=== PATIENT | female | born 1930 | race Two or more races ===

== ENCOUNTER 2016-03-11 01:33 | Inpatient (IN) | payer MEDICARE, MEDICAID ==
[2016-03-11] VITALS (45 sets, daily range): BP systolic 64–128; BP diastolic 19–74
[~2016-03-11] VITALS: Ht 152.4 cm; Wt 59.0 kg
[2016-03-11] MEDS ORDERED: MULTI-DELYN237 ML GT (02:11)
[2016-03-11] MEDS ORDERED: TYLENOL650 MG/20. GT (02:11)
[2016-03-11] MEDS ORDERED: BENADRYL25 MG GT (02:11)
[2016-03-11] MEDS ORDERED: BENAZEPRIL HCL10 MG GT (02:11)
[2016-03-11] MEDS ORDERED: LEVEMIR100 UNIT/1 SUBQ (02:11)
[2016-03-11] MEDS ORDERED: B COMPLEX-FOLI1 EACH GT (02:11)
[2016-03-11] MEDS ORDERED: CALAN SR120 MG GT (02:11)
[2016-03-11] MEDS ORDERED: DONEPEZIL HCL10 M2 GT (02:11)
[2016-03-11] MEDS ORDERED: TRAZODONE HCL100 MG GT (02:11)
[2016-03-11] MEDS ORDERED: ZYPREXA5 MG GT (02:11)
[2016-03-11] MEDS ORDERED: OMEPRAZOLE20 M2 GT (02:11)
[2016-03-11] MEDS ORDERED: ASPIRIN325 MG GT (02:11)
[2016-03-11] MEDS ORDERED: MIRTAZAPINE7.5 MG GT (02:11)
[2016-03-11] MEDS ORDERED: MULTIVITAMINS1 EAC8 ORAL (02:11)
[2016-03-11] MEDS ORDERED: Vancomycin 1 GM in NS 275 ML IVPB ONE (02:15)
[2016-03-11] MEDS ORDERED: Piperacillin/Tazobactam 4.5 GM in NS 110 ML IVPB ONE (02:15)
[2016-03-11] MEDS ORDERED: Vancomycin 1gm inj IVPB ONE (02:16)
[2016-03-11] MEDS ORDERED: Tubing IV Cassette IV ONE (02:16)
[2016-03-11] MEDS ORDERED: NS 275 ML ONE (02:16)
[2016-03-11 02:18] LABS: BASOPHILS % (AUTO) 0.3 % (0.0-2.0); MEAN CORPUSCULAR HEMOGLOBIN 29.9 PG (27.0-31.0); MEAN CORPUSCULAR HGB CONC 27.3 G/DL (32.0-36.0); MEAN CORPUSCULAR VOLUME 109 FL (80-99); MEAN PLATELET VOLUME 6.9 FL (6.5-10.1); MONOCYTES % (AUTO) 2.8 % (1.0-10.0); NEUTROPHILS % (AUTO) 84.9 % (45.0-75.0); PLATELET COUNT 429 K/UL (150-450); RED BLOOD COUNT 3.29 M/UL (4.20-5.40); RED CELL DISTRIBUTION WIDTH 14.7 % (11.6-14.8); WHITE BLOOD COUNT 15.7 K/UL (4.8-10.8)
[2016-03-11 02:30] LABS: TROPONIN I < 0.30 ng/mL (<=0.30)
[2016-03-11 02:33] LABS: ALANINE AMINOTRANSFERASE 22 U/L (3-33); ALBUMIN/GLOBULIN RATIO 0.8 (1.0-2.7); ASPARTATE AMINO TRANSFERASE 22 U/L (5-40); CALCIUM 9.9 mg/dL (8.6-10.2); CARBON DIOXIDE 17 mEQ/L (20-30); CREATININE 2.4 mg/dL (0.5-0.9); HEMOLYSIS 11; SODIUM 154 mEQ/L (135-145); TOTAL PROTEIN 6.6 g/dL (6.6-8.7)
[2016-03-11 02:42] LABS: REFLEX LACTIC ACID YES OR NO YES
[2016-03-11 02:44] LABS: CKMB 4.8 ng/mL (< 3.8)
[2016-03-11 02:49] LABS: ANION GAP 26 (5-15)
[2016-03-11 02:52] LABS: CHLORIDE 111 mEQ/L (98-107); POTASSIUM 6.1 mEQ/L (3.4-4.9)
[2016-03-11] MEDS ORDERED: Zosyn 4.5gm inj ONE (03:02)
[2016-03-11] MEDS ORDERED: NS 110 ML ONE (03:02)
[2016-03-11 03:49] LABS: PROTHROMBIN TIME 10.3 SEC (9.30-11.50)
[2016-03-11 03:52] LABS: PARTIAL THROMBOPLASTIN TIME > 150 SEC (23-33)
[2016-03-11 04:36] LABS: ABG PCO2 36.2 mmHg (35.0-45.0)
[2016-03-11 04:37] LABS: ABG ALLEN TEST POSITIVE; ABG BASE EXCESS -16.3
--- NOTE | 2016-03-11 05:34 | Emergency Room Report ---
History of Present Illness General Chief Complaint: Dyspnea/Respdistress Source: Medical Record, EMS Present Illness HPI This is an 85-year-old female who is bed bound. She also has a feeding tube. She at baseline is nonverbal but awake. She was sent in for respiratory distress. Onset tonight. No nausea no vomiting. No fever. Per EMS she is nonresponsive and hypoxic. They put on oxygen and sent her here. Unable to get any other history from patient. Also blood sugar was very high on the monitor. Allergies: Coded Allergies: No Known Allergies (Unverified , 03/11/16) Patient History Past Medical History: see triage record, old chart reviewed, pneumonia, psych hx Past Surgical History: other Pertinent Family History: none Social History: Denies: smoking Now: No Immunizations: other Reviewed Nursing Documentation: PMH: Agreed, PSxH: Agreed Nursing Documentation-PMH Hx Hypertension: Yes Hx Diabetes: Yes Review of Systems Constitutional: Reports: weakness Eye: Denies: blurred vision, eye pain ENT: Denies: ear pain, nose congestion, throat swelling Respiratory: Reports: shortness of breath, Denies: cough Cardiovascular: Denies: chest pain, palpitations Gastrointestinal: Denies: abdominal pain, diarrhea, nausea, vomiting Musculoskeletal: Denies: back pain, joint pain Skin: Denies: rash Neurological: Denies: headache, numbness Endocrine: Denies: increased thirst, increased urine Hematologic/Lymphatic: Denies: easy bruising All Other Systems: limited - Secondary to her condition. Physical Exam Vital Signs Date Time Temp Pulse Resp B/P Pulse Ox O2 Delivery O2 Flow Rate FiO2 03/11/16 01:31 101.3 135 35 137/115 85 Non-Rebreather 15.0 03/11/16 01:35 100 vitals with fever, tachycardia, hypoxia Sp02 EP Interpretation: abnormal General Appearance: severe distress, lethargic, Chronically Ill Head: normocephalic, atraumatic Eyes: bilateral eye EOMI, bilateral eye PERRL ENT: dry mucus membranes Neck: full range of motion, supple, no meningismus Respiratory: chest non-tender, decreased breath sounds, accessory muscle use, crackles Cardiovascular #1: regular rate, rhythm, no murmur, tachycardia Gastrointestinal: normal bowel sounds, non tender, no mass, no organomegaly, no bruit, non-distended Musculoskeletal: back normal, normal range of motion, other Neurologic: other - No focal deficit Psychiatric: mood/affect normal Skin: warm/dry Procedures Critical Care Time Critical Care Time Critical care is mandated in this patient who presented with severe sepsis. Patient require my urgent intervention to attenuate the risks of a bar collapse which may lead to cardiovascular collapse and . Critical care time is 75 minutes excluding any reportable procedure. Critical care time included evaluation, multiple reevaluation, looking at old charts, interpreting laboratory and diagnostic data, discussing case with patient and family and consultants, and charting. Central Line Central Line : Consent: Emergent Central Line Lumen: triple Maximal Sterile Barrier Tech: yes cap, yes mask, yes sterile gown, yes sterile gloves, yes large sterile sheet, yes hand hygiene, yes chlorhexidine prep Central Line Postion: femoral (R) Complications: none Central Line Post Position: sutured, good blood return Attempts: One Patient Tolerated: Well Complications: None Medical Decision Making Diagnostic Impression: Primary Impression: Severe sepsis with acute organ dysfunction Additional Impressions: Pneumonia Qualified Codes: J18.9 - Pneumonia, unspecified organism Respiratory failure with hypoxia Qualified Codes: J96.21 - Acute and chronic respiratory failure with hypoxia Acute renal failure (ARF) Qualified Codes: N17.9 - Acute kidney failure, unspecified Dehydration Hyperglycemia due to type 2 diabetes mellitus Qualified Codes: E11.65 - Type 2 diabetes mellitus with hyperglycemia; Z79.4 - ocean transportation intermediary (current) use of insulin DKA (diabetic ketoacidoses) Qualified Codes: E13.10 - Other specified diabetes mellitus with ketoacidosis without coma ER Course Patient presents with severe sepsis/septic shock. Condition is critical. She is protecting her airway. Broad spectrum antibiotics given. We'll admit to ICU. Lab Results Impression labs showed severe hyperglycemia and possible DKA EKG Diagnostic Results Rate: normal Rhythm: NSR ST Segments: no acute changes Rhythm Strip Diag. Results EP Interpretation: yes Rate: 105 Rhythm: NSR, no PVC's, no ectopy Chest X-Ray Diagnostic Results EP Interpretation: Yes Findings: no effusion, no pneumothorax, other - multi lobar infiltrates, mostly LLL Number of Views: 1 Last Vital Signs Date Time Temp Pulse Resp B/P Pulse Ox O2 Delivery O2 Flow Rate FiO2 03/11/16 04:36 97.4 112 15 92/45 97 Mechanical Ventilator 100 03/11/16 01:48 15.0 Status: improved Disposition: ADMITTED INPATIENT Condition: Critical Referrals: JENNY HARDWICK (PCP) KEVIN WAN M.D. Mar 11, 2016 05:34
[2016-03-11 05:58] LABS: ANION GAP 25 (5-15); CALCIUM 8.3 mg/dL (8.6-10.2); CARBON DIOXIDE 14 mEQ/L (20-30); CHLORIDE 119 mEQ/L (98-107); CREATININE 2.3 mg/dL (0.5-0.9); HEMOLYSIS 3; POTASSIUM 4.8 mEQ/L (3.4-4.9); SODIUM 158 mEQ/L (135-145)
[2016-03-11] MEDS ORDERED: Morphine Sulfate 4mg/ml Inj IVP PRN (06:45)
[2016-03-11] MEDS ORDERED: Miralax 17gm pkt ORAL PRN (06:45)
[2016-03-11] MEDS ORDERED: Amikacin Rx to dose MISC PRN (06:45)
[2016-03-11] MEDS ORDERED: LORazepam Inj 2mg/ml 1ml IV PRN (06:45)
[2016-03-11] MEDS ORDERED: DuoNeb 0.5-3(2.5)mg/3ml neb HHN PRN (06:45)
[2016-03-11] MEDS ORDERED: Nitroglycerin Subl 0.4mg tab (Bottle Of 25) SL PRN (06:45)
[2016-03-11] MEDS: Heparin 5000 units/ml inj SUBQ SCH ×2 (09:00→20:34)
[2016-03-11] MEDS ORDERED: Amikacin 350 MG in NS 110 ML IV ONE ×2 (09:00→14:30)
--- NOTE | 2016-03-11 11:19 | Pulmonolgy Critical Care Note ---
Critical Care - Asmt/Plan Problems: (1) Respiratory failure with hypoxia (2) Hyperosmolar coma (3) DKA (diabetic ketoacidoses) (4) Acute renal failure (ARF) (5) Dehydration (6) Advanced dementia Respiratory: adjust tidal volume, adjust FIO2, CXR Cardiac: continue to monitor HR/BP Renal: F/U I&O, keep IV fluid, check electrolytes Infectious Disease: check cultures, continue antibiotics Gastrointestinal: continue feedings/current rate Endocrine: monitor blood sugar, check TSH, check HgA1C, continue sliding scale insulin Hematologic: transfuse if hgb<8.5 Neurologic: PRN Ativan, PRN Morphine, keep patient comfortable Affect: PRN ativan Prophylaxis: Protonix Disposition: keep in ICU Notes Reviewed: auto mechanic supervisor, cardio, renal Discussed with: nurses, consultants, immigration case workerinternet project manager - Objective Last 24 Hour Vital Signs Date Time Temp Pulse Resp B/P Pulse Ox O2 Delivery O2 Flow Rate FiO2 03/11/16 10:10 80 03/11/16 10:00 100 03/11/16 08:40 89 20 98 Full Face 100 03/11/16 08:30 95 31 99/57 98 Mechanical Ventilator 100 03/11/16 08:20 97.4 95 31 106/74 100 15.0 100 03/11/16 07:42 96 31 100 Full Face 100 03/11/16 07:30 95 32 106/74 100 Mechanical Ventilator 100 03/11/16 06:30 99 27 128/64 100 Mechanical Ventilator 100 03/11/16 05:40 109 27 122/67 100 Mechanical Ventilator 100 03/11/16 05:25 108 33 100 Full Face 100 03/11/16 04:36 97.4 112 15 92/45 97 Mechanical Ventilator 100 03/11/16 03:32 99.4 108 15 90/54 97 Mechanical Ventilator 100 03/11/16 02:51 116 28 Full Face 100 03/11/16 02:30 99.7 115 14 99/59 97 Mechanical Ventilator 100 03/11/16 01:48 135 35 Non-Rebreather 15.0 03/11/16 01:35 100 03/11/16 01:31 101.3 135 35 137/115 85 Non-Rebreather 15.0 Status: somnolent Condition: critical HEENT: atraumatic Neck: full ROM Lungs: clear, chest wall tender Heart: HR/BP stable Abdomen: soft, non-tender, feeding tube Extremities: no C/C/E, edema Decubiti: location Critical Care - Subjective ROS Limited/Unobtainable: Yes ICU Day: 1 Intubation Day: on bipap Interval Events: 85-year-old female who is bed bound with feeding tube, nonverbal but awake, [facility] resident She was sent in for respiratory distress. EMS reported that she is nonresponsive and hypoxic. They put on oxygen and sent her here. Pt was diagnosed to have hyper osmolar coma/ DKA, pneumonia and admitted to ICU. FI02: 100 Vent Support Breath Rate: 14 Vent Support Mode: BiLevel Sputum Amount: None Fluids: NS bolus and 1/2 NS 150 cchour I&O: Intake and Output 03/10/16 03/11/16 19:00 07:00 Intake Total 2335 ml Balance 2335 ml Intake IV Total 2335 ml CXR: extensive Left infiltrate Labs: Laboratory Tests Test 03/11/16 01:55 03/11/16 03:25 03/11/16 04:25 03/11/16 05:25 White Blood Count 15.7 K/UL (4.8-10.8) H Red Blood Count 3.29 M/UL (4.20-5.40) L Hemoglobin 9.8 G/DL (12.0-16.0) L Hematocrit 35.9 % (37.0-47.0) L Mean Corpuscular Volume 109 FL (80-99) H Mean Corpuscular Hemoglobin 29.9 PG (27.0-31.0) Mean Corpuscular Hemoglobin Concent 27.3 G/DL (32.0-36.0) L Red Cell Distribution Width 14.7 % (11.6-14.8) Platelet Count 429 K/UL (150-450) Mean Platelet Volume 6.9 FL (6.5-10.1) Neutrophils (%) (Auto) 84.9 % (45.0-75.0) H Lymphocytes (%) (Auto) 12.0 % (20.0-45.0) L Monocytes (%) (Auto) 2.8 % (1.0-10.0) Eosinophils (%) (Auto) 0.0 % (0.0-3.0) Basophils (%) (Auto) 0.3 % (0.0-2.0) Prothrombin Time 10.3 SEC (9.30-11.50) Prothromb Time International Ratio 1.0 (0.9-1.1) Activated Partial Thromboplast Time > 150 SEC (23-33) *H Sodium Level 154 mEQ/L (135-145) H 158 mEQ/L (135-145) H Potassium Level 6.1 mEQ/L (3.4-4.9) *H 4.8 mEQ/L (3.4-4.9) Chloride Level 111 mEQ/L (98-107) H 119 mEQ/L (98-107) H Carbon Dioxide Level 17 mEQ/L (20-30) L 14 mEQ/L (20-30) L Anion Gap 26 (5-15) H 25 (5-15) H Blood Urea Nitrogen 137 mg/dL (7-23) H 116 mg/dL (7-23) H Creatinine 2.4 mg/dL (0.5-0.9) H 2.3 mg/dL (0.5-0.9) H Estimat Glomerular Filtration Rate mL/min (>60) mL/min (>60) Glucose Level 1072 mg/dL (74-106) *H 869 mg/dL (74-106) #*H Lactic Acid Level 9.90 mmol/L (0.66-2.22) H 11.80 mmol/L (0.66-2.22) H Calcium Level 9.9 mg/dL (8.6-10.2) 8.3 mg/dL (8.6-10.2) L Total Bilirubin 0.7 mg/dL (0.0-1.2) Aspartate Amino Transf (AST/SGOT) 22 U/L (5-40) Alanine Aminotransferase (ALT/SGPT) 22 U/L (3-33) Alkaline Phosphatase 100 U/L (35-104) Total Creatine Kinase 792 U/L (26-140) H Creatine Kinase MB 4.8 ng/mL (< 3.8) H Creatine Kinase MB Relative Index 0.6 Troponin I < 0.30 ng/mL (<=0.30) Total Protein 6.6 g/dL (6.6-8.7) Albumin 3.1 g/dL (3.5-5.2) L Globulin 3.5 g/dL Albumin/Globulin Ratio 0.8 (1.0-2.7) L Arterial Blood pH 7.130 (7.350-7.450) Arterial Blood Partial Pressure CO2 36.2 mmHg (35.0-45.0) Arterial Blood Partial Pressure O2 202.0 mmHg (75.0-100.0) H Arterial Blood HCO3 11.8 mmol/L (22.0-26.0) L Arterial Blood Oxygen Saturation 98.4 % (92.0-98.0) H Arterial Blood Base Excess -16.3 Leon Test Positive Test 03/11/16 10:05 Glucose Level 716 mg/dL (74-106) #*H GILSON NÚÑEZ Mar 11, 2016 11:19
[2016-03-11 12:47] LABS: INR 1.2 (0.9-1.1); PROTHROMBIN TIME 12.1 SEC (9.30-11.50)
[2016-03-11] MEDS: DOPamine 400mg/250ml 250 ML IV SCH ×9 (13:22→20:31)
[2016-03-11 13:37] LABS: CRP QUANT 6.9 mg/dL (< 0.5)
--- NOTE | 2016-03-11 13:39 | Diagnostic Imaging Report ---
Indication: SOB Technique: One view of the chest Comparison: none Findings: Reticular and nodular opacities are seen in the left perihilar region, along with some larger opacities of varying shapes and sizes. A band of atelectasis and/or scarring is seen in the right perihilar region. The heart size is normal. Pleural spaces are clear Impression: Nonspecific left lung parenchymal opacities, could reflect acute infiltrates, edema, neoplastic or postinflammatory changes. Correlate with clinical findings, recommend followup radiographs as clinically indicated Right perihilar atelectasis
[2016-03-11] MEDS ORDERED: Piperacillin/Tazobactam 3.375 GM in NS 110 ML IVPB SCH (14:00)
[2016-03-11 14:07] LABS: RETICULOCYTE COUNT 1.7 % (0.0-2.0)
[2016-03-11 14:10] LABS: BAND NEUTROPHILS % (MANUAL) 3 % (0-8); LYMPHOCYTES % (MANUAL) 11 % (20-45); NEUTROPHILS % (MANUAL) 85 % (45-75); TOTAL CELLS COUNTED 100
[2016-03-11 14:11] LABS: BASOPHILS % (MANUAL) 0 % (0-2); EOSINOPHILS % (MANUAL) 0 % (0-3); PLATELET ESTIMATE INCREASED; PLATELET MORPHOLOGY NORMAL
[2016-03-11 14:13] LABS: MACROCYTES 1+
[2016-03-11 14:18] LABS: PATH BLOOD SMEAR/OMC SENT TO PATHOLOGIST
[2016-03-11 14:22] LABS: ERYTHROCYTE SEDIMENTATION RATE 56 MM/HR (0-42)
--- NOTE | 2016-03-11 15:04 | Consultation ---
Consult Note Consult Note Asked to eval for Renal failure Chief Complaint: Dyspnea/Respdistress This is an 85-year-old female who is bed bound. She also has a feeding tube. She at baseline is nonverbal but awake. She was sent in for respiratory distress. Onset tonight. No nausea no vomiting. No fever. Per EMS she is nonresponsive and hypoxic. They put on oxygen and sent her here. Unable to get any other history from patient. Also blood sugar was very high on the monitor. . Assessment/Plan Renal: - Acute renal failure (ARF) secondary to Septic shock - Dehydration and free water deficit leading to hypernatremia Others: 1) Respiratory failure with hypoxia / Pneumonia / sepsis (2) Hyperosmolar coma (3) DKA (diabetic ketoacidoses) (4) Advanced dementia (5) Anemia Plan: Hydrate- Antibiotics- BS control- Avoid Nephrotoxics- Poor prognosis LITTLE MACIAS Mar 11, 2016 15:04
[2016-03-11] MEDS: Insulin Rate Change 1 Each MISC PRN ×8 (15:06→23:06)
[2016-03-11 15:07] LABS: REFLEX LACTIC ACID YES OR NO YES
--- NOTE | 2016-03-11 15:57 | Infectious Diseases Prog Note ---
Assessment/Plan Problems: (1) HCAP (healthcare-associated pneumonia) Assessment & Plan: will start zyvox, continue zosyn, will D/C amikacin, and vancomycin to avoid nephrotoxicity, will send influenza screening (2) Severe sepsis with acute organ dysfunction Assessment & Plan: will send blood culture, and start zyvox, and continue zosyn , will stop amikacin and vancomycin since she had renal failure and these antibiotics will worsen her kidney function. (3) DKA (diabetic ketoacidoses) Assessment & Plan: continue insulin drip and monitor glucose level closely, coremaker supervisor is following (4) Respiratory failure with hypoxia Assessment & Plan: due to pneumonia , on high flow oxygen, monitor ABG, enterprise systems manager is following (5) Dehydration Assessment & Plan: continue IVF for hydration (6) Acute renal failure (ARF) Assessment & Plan: due to sepsis, avoid nephrotoxic meds, continue IVF for hydration, consult compliance clerk Subjective Allergies: Coded Allergies: No Known Allergies (Unverified , 03/11/16) Objective Vital Signs Last 24 Hour Vital Signs Date Time Temp Pulse Resp B/P Pulse Ox O2 Delivery O2 Flow Rate FiO2 03/11/16 15:27 85/40 03/11/16 15:08 90 20 100 Full Face 100 03/11/16 14:39 82/44 03/11/16 14:09 82/44 03/11/16 13:22 81/48 03/11/16 13:15 72 20 99 Full Face 100 03/11/16 10:55 92 20 99 Full Face 100 03/11/16 10:10 80 03/11/16 10:00 89 21 93/45 03/11/16 10:00 100 03/11/16 08:40 89 20 98 Full Face 100 03/11/16 08:30 95 31 99/57 98 Mechanical Ventilator 100 03/11/16 08:20 97.4 95 31 106/74 100 15.0 100 03/11/16 07:42 96 31 100 Full Face 100 03/11/16 07:30 95 32 106/74 100 Mechanical Ventilator 100 03/11/16 06:30 99 27 128/64 100 Mechanical Ventilator 100 03/11/16 05:40 109 27 122/67 100 Mechanical Ventilator 100 03/11/16 05:25 108 33 100 Full Face 100 03/11/16 04:36 97.4 112 15 92/45 97 Mechanical Ventilator 100 03/11/16 03:32 99.4 108 15 90/54 97 Mechanical Ventilator 100 03/11/16 02:51 116 28 Full Face 100 03/11/16 02:30 99.7 115 14 99/59 97 Mechanical Ventilator 100 03/11/16 01:48 135 35 Non-Rebreather 15.0 03/11/16 01:35 100 03/11/16 01:31 101.3 135 35 137/115 85 Non-Rebreather 15.0 Height (Feet): 5 Height (Inches): 0.00 Weight (Pounds): 130 Laboratory Tests Test 03/11/16 01:55 03/11/16 03:25 03/11/16 04:25 03/11/16 05:25 White Blood Count 15.7 K/UL (4.8-10.8) H Red Blood Count 3.29 M/UL (4.20-5.40) L Hemoglobin 9.8 G/DL (12.0-16.0) L Hematocrit 35.9 % (37.0-47.0) L Mean Corpuscular Volume 109 FL (80-99) H Mean Corpuscular Hemoglobin 29.9 PG (27.0-31.0) Mean Corpuscular Hemoglobin Concent 27.3 G/DL (32.0-36.0) L Red Cell Distribution Width 14.7 % (11.6-14.8) Platelet Count 429 K/UL (150-450) Mean Platelet Volume 6.9 FL (6.5-10.1) Neutrophils (%) (Auto) 84.9 % (45.0-75.0) H Lymphocytes (%) (Auto) 12.0 % (20.0-45.0) L Monocytes (%) (Auto) 2.8 % (1.0-10.0) Eosinophils (%) (Auto) 0.0 % (0.0-3.0) Basophils (%) (Auto) 0.3 % (0.0-2.0) Differential Total Cells Counted 100 Neutrophils % (Manual) 85 % (45-75) H Lymphocytes % (Manual) 11 % (20-45) L Monocytes % (Manual) 1 % (1-10) Eosinophils % (Manual) 0 % (0-3) Basophils % (Manual) 0 % (0-2) Band Neutrophils 3 % (0-8) Platelet Estimate Increased H Platelet Morphology Normal Macrocytosis 1+ Prothrombin Time 10.3 SEC (9.30-11.50) Prothromb Time International Ratio 1.0 (0.9-1.1) Activated Partial Thromboplast Time > 150 SEC (23-33) *H Sodium Level 154 mEQ/L (135-145) H 158 mEQ/L (135-145) H Potassium Level 6.1 mEQ/L (3.4-4.9) *H 4.8 mEQ/L (3.4-4.9) Chloride Level 111 mEQ/L (98-107) H 119 mEQ/L (98-107) H Carbon Dioxide Level 17 mEQ/L (20-30) L 14 mEQ/L (20-30) L Anion Gap 26 (5-15) H 25 (5-15) H Blood Urea Nitrogen 137 mg/dL (7-23) H 116 mg/dL (7-23) H Creatinine 2.4 mg/dL (0.5-0.9) H 2.3 mg/dL (0.5-0.9) H Estimat Glomerular Filtration Rate mL/min (>60) mL/min (>60) Glucose Level 1072 mg/dL (74-106) *H 869 mg/dL (74-106) #*H Lactic Acid Level 9.90 mmol/L (0.66-2.22) H 11.80 mmol/L (0.66-2.22) H Calcium Level 9.9 mg/dL (8.6-10.2) 8.3 mg/dL (8.6-10.2) L Total Bilirubin 0.7 mg/dL (0.0-1.2) Aspartate Amino Transf (AST/SGOT) 22 U/L (5-40) Alanine Aminotransferase (ALT/SGPT) 22 U/L (3-33) Alkaline Phosphatase 100 U/L (35-104) Total Creatine Kinase 792 U/L (26-140) H Creatine Kinase MB 4.8 ng/mL (< 3.8) H Creatine Kinase MB Relative Index 0.6 Troponin I < 0.30 ng/mL (<=0.30) Total Protein 6.6 g/dL (6.6-8.7) Albumin 3.1 g/dL (3.5-5.2) L Globulin 3.5 g/dL Albumin/Globulin Ratio 0.8 (1.0-2.7) L Arterial Blood pH 7.130 (7.350-7.450) Arterial Blood Partial Pressure CO2 36.2 mmHg (35.0-45.0) Arterial Blood Partial Pressure O2 202.0 mmHg (75.0-100.0) H Arterial Blood HCO3 11.8 mmol/L (22.0-26.0) L Arterial Blood Oxygen Saturation 98.4 % (92.0-98.0) H Arterial Blood Base Excess -16.3 Leon Test Positive Test 03/11/16 10:05 03/11/16 12:15 03/11/16 13:30 Glucose Level 716 mg/dL (74-106) #*H Erythrocyte Sedimentation Rate 56 MM/HR (0-42) H Reticulocyte Count 1.7 % (0.0-2.0) Prothrombin Time 12.1 SEC (9.30-11.50) H Prothromb Time International Ratio 1.2 (0.9-1.1) H Activated Partial Thromboplast Time 28 SEC (23-33) Iron Level 13 ug/dL (37-145) L Total Iron Binding Capacity 139 ug/dL (250-400) L Percent Iron Saturation 9 % (15-50) L Unsaturated Iron Binding 126 ug/dL (112-346) Ferritin 1344 ng/mL (13-150) H Lactate Dehydrogenase 455 U/L (135-230) H C-Reactive Protein, Quantitative 6.9 mg/dL (< 0.5) H Carcinoembryonic Antigen 42.7 ng/mL H Vitamin B12 Level 742 pg/mL (211-946) Folate Pending Lactic Acid Level 5.40 mmol/L (0.66-2.22) H Current Medications Medications (Trade) Dose Ordered Sig/Tiffany Route PRN Reason Start Time Stop Time Status Last Admin Dose Admin Acetaminophen (Tylenol) 650 mg Q4H PRN ORAL T>100.5 03/11/16 06:45 04/10/16 06:44 Albuterol/ Ipratropium (DuoNeb 0.5-3(2.5)mg/3ml) 3 ml Q4H PRN HHN Shortness of Breath 03/11/16 06:45 03/16/16 06:44 Dextrose (Dextrose 50%) PRN PRN IV HYPOGLYCEMIA 03/11/16 06:45 04/10/16 06:44 Dextrose (Dextrose 50%) STAT PRN IV Hypoglycemia 03/11/16 06:45 04/10/16 06:44 Dopamine HCl/ Dextrose (DOPamine 400mg/ 250ml) 250 ml @ 0 mls/hr Q24H IV 03/11/16 13:00 04/10/16 12:59 03/11/16 15:27 Heparin Sodium (Porcine) (Heparin 5000 units/ml) 5,000 units EVERY 12 HOURS SUBQ 03/11/16 09:00 04/10/16 08:59 03/11/16 09:00 Insulin Human Regular (NovoLIN R) 10 units PRN PRN IV BS=>300 03/11/16 09:00 04/10/16 08:59 Insulin Human Regular 5 units 5 units PRN PRN IV BS 200-299 03/11/16 09:00 04/10/16 08:59 Insulin Human Regular/Sodium Chloride (NovoLIN R/ Sodium Chloride) 101 ml @ 0 mls/hr Q24H IV 03/11/16 08:00 04/10/16 07:59 03/11/16 08:00 Lorazepam (Ativan 2mg/ml 1ml) 2 mg Q2H PRN IV agitation 03/11/16 06:45 03/18/16 06:44 Miscellaneous Medication (Insulin Rate Change) 1 ea PRN PRN MISC according to protocol 03/11/16 09:00 04/10/16 08:59 03/11/16 15:06 Morphine Sulfate (Morphine Sulfate) 4 mg Q4H PRN IVP Severe Pain (Pain Scale 7-10) 03/11/16 06:45 03/18/16 06:44 Nitroglycerin (Ntg) 0.4 mg Q5M PRN SL Prn Chest Pain 03/11/16 06:45 04/10/16 06:44 Ondansetron HCl (Zofran) 4 mg Q6H PRN IVP Nausea & Vomiting 03/11/16 06:45 04/10/16 06:44 Piperacillin Sod/ Tazobactam Sod 3.375 gm/Sodium Chloride 110 ml @ 27.5 mls/hr Q12HR@0200,1400 IVPB 03/11/16 14:00 03/18/16 13:59 Polyethylene Glycol (Miralax) 17 gm DAILYPRN PRN ORAL Constipation 03/11/16 06:45 04/10/16 06:44 Sodium Chloride 1,000 ml @ 150 mls/hr Q6H40M IV 03/11/16 11:30 04/10/16 11:29 03/11/16 11:30 Sodium Chloride (Sodium Chloride 1000ml bag) 1,000 ml @ 150 mls/hr Q6H40M IV 03/11/16 07:30 04/10/16 07:29 03/11/16 14:11 Trazodone HCl 100 mg 100 mg BEDTIME GT 03/11/16 21:00 04/10/16 20:59 Andrade Morales M.D. Mar 11, 2016 15:57
--- NOTE | 2016-03-11 17:14 | Cardiac Electrophysiology PN ---
Subjective Subjective [id number] Objective Last 24 Hour Vital Signs Date Time Temp Pulse Resp B/P Pulse Ox O2 Delivery O2 Flow Rate FiO2 03/11/16 16:48 86/45 03/11/16 16:32 83/45 03/11/16 15:54 82/44 03/11/16 15:27 85/40 03/11/16 15:08 90 20 100 Full Face 100 03/11/16 14:39 82/44 03/11/16 14:09 82/44 03/11/16 13:22 81/48 03/11/16 13:15 72 20 99 Full Face 100 03/11/16 10:55 92 20 99 Full Face 100 03/11/16 10:10 80 03/11/16 10:00 89 21 93/45 03/11/16 10:00 100 03/11/16 08:40 89 20 98 Full Face 100 03/11/16 08:30 95 31 99/57 98 Mechanical Ventilator 100 03/11/16 08:20 97.4 95 31 106/74 100 15.0 100 03/11/16 07:42 96 31 100 Full Face 100 03/11/16 07:30 95 32 106/74 100 Mechanical Ventilator 100 03/11/16 06:30 99 27 128/64 100 Mechanical Ventilator 100 03/11/16 05:40 109 27 122/67 100 Mechanical Ventilator 100 03/11/16 05:25 108 33 100 Full Face 100 03/11/16 04:36 97.4 112 15 92/45 97 Mechanical Ventilator 100 03/11/16 03:32 99.4 108 15 90/54 97 Mechanical Ventilator 100 03/11/16 02:51 116 28 Full Face 100 03/11/16 02:30 99.7 115 14 99/59 97 Mechanical Ventilator 100 03/11/16 01:48 135 35 Non-Rebreather 15.0 03/11/16 01:35 100 03/11/16 01:31 101.3 135 35 137/115 87 Non-Rebreather 15.0 Intake and Output 03/10/16 03/11/16 19:00 07:00 Intake Total 2335 ml Balance 2335 ml Intake IV Total 2335 ml Laboratory Tests Test 03/11/16 01:55 03/11/16 03:25 03/11/16 04:25 03/11/16 05:25 White Blood Count 15.7 K/UL (4.8-10.8) H Red Blood Count 3.29 M/UL (4.20-5.40) L Hemoglobin 9.8 G/DL (12.0-16.0) L Hematocrit 35.9 % (37.0-47.0) L Mean Corpuscular Volume 109 FL (80-99) H Mean Corpuscular Hemoglobin 29.9 PG (27.0-31.0) Mean Corpuscular Hemoglobin Concent 27.3 G/DL (32.0-36.0) L Red Cell Distribution Width 14.7 % (11.6-14.8) Platelet Count 429 K/UL (150-450) Mean Platelet Volume 6.9 FL (6.5-10.1) Neutrophils (%) (Auto) 84.9 % (45.0-75.0) H Lymphocytes (%) (Auto) 12.0 % (20.0-45.0) L Monocytes (%) (Auto) 2.8 % (1.0-10.0) Eosinophils (%) (Auto) 0.0 % (0.0-3.0) Basophils (%) (Auto) 0.3 % (0.0-2.0) Differential Total Cells Counted 100 Neutrophils % (Manual) 85 % (45-75) H Lymphocytes % (Manual) 11 % (20-45) L Monocytes % (Manual) 1 % (1-10) Eosinophils % (Manual) 0 % (0-3) Basophils % (Manual) 0 % (0-2) Band Neutrophils 3 % (0-8) Platelet Estimate Increased H Platelet Morphology Normal Macrocytosis 1+ Prothrombin Time 10.3 SEC (9.30-11.50) Prothromb Time International Ratio 1.0 (0.9-1.1) Activated Partial Thromboplast Time > 150 SEC (23-33) *H Sodium Level 154 mEQ/L (135-145) H 158 mEQ/L (135-145) H Potassium Level 6.1 mEQ/L (3.4-4.9) *H 4.8 mEQ/L (3.4-4.9) Chloride Level 111 mEQ/L (98-107) H 119 mEQ/L (98-107) H Carbon Dioxide Level 17 mEQ/L (20-30) L 14 mEQ/L (20-30) L Anion Gap 26 (5-15) H 25 (5-15) H Blood Urea Nitrogen 137 mg/dL (7-23) H 116 mg/dL (7-23) H Creatinine 2.4 mg/dL (0.5-0.9) H 2.3 mg/dL (0.5-0.9) H Estimat Glomerular Filtration Rate mL/min (>60) mL/min (>60) Glucose Level 1072 mg/dL (74-106) *H 869 mg/dL (74-106) #*H Lactic Acid Level 9.90 mmol/L (0.66-2.22) H 11.80 mmol/L (0.66-2.22) H Calcium Level 9.9 mg/dL (8.6-10.2) 8.3 mg/dL (8.6-10.2) L Total Bilirubin 0.7 mg/dL (0.0-1.2) Aspartate Amino Transf (AST/SGOT) 22 U/L (5-40) Alanine Aminotransferase (ALT/SGPT) 22 U/L (3-33) Alkaline Phosphatase 100 U/L (35-104) Total Creatine Kinase 792 U/L (26-140) H Creatine Kinase MB 4.8 ng/mL (< 3.8) H Creatine Kinase MB Relative Index 0.6 Troponin I < 0.30 ng/mL (<=0.30) Total Protein 6.6 g/dL (6.6-8.7) Albumin 3.1 g/dL (3.5-5.2) L Globulin 3.5 g/dL Albumin/Globulin Ratio 0.8 (1.0-2.7) L Arterial Blood pH 7.130 (7.350-7.450) Arterial Blood Partial Pressure CO2 36.2 mmHg (35.0-45.0) Arterial Blood Partial Pressure O2 202.0 mmHg (75.0-100.0) H Arterial Blood HCO3 11.8 mmol/L (22.0-26.0) L Arterial Blood Oxygen Saturation 98.4 % (92.0-98.0) H Arterial Blood Base Excess -16.3 Leon Test Positive Test 03/11/16 10:05 03/11/16 12:15 03/11/16 13:30 Glucose Level 716 mg/dL (74-106) #*H Erythrocyte Sedimentation Rate 56 MM/HR (0-42) H Reticulocyte Count 1.7 % (0.0-2.0) Prothrombin Time 12.1 SEC (9.30-11.50) H Prothromb Time International Ratio 1.2 (0.9-1.1) H Activated Partial Thromboplast Time 28 SEC (23-33) Iron Level 13 ug/dL (37-145) L Total Iron Binding Capacity 139 ug/dL (250-400) L Percent Iron Saturation 9 % (15-50) L Unsaturated Iron Binding 126 ug/dL (112-346) Ferritin 1344 ng/mL (13-150) H Lactate Dehydrogenase 455 U/L (135-230) H C-Reactive Protein, Quantitative 6.9 mg/dL (< 0.5) H Carcinoembryonic Antigen 42.7 ng/mL H Vitamin B12 Level 742 pg/mL (211-946) Folate Pending Lactic Acid Level 5.40 mmol/L (0.66-2.22) H SABRINA JOE Mar 11, 2016 17:14
[2016-03-11] MEDS ORDERED: TraZODone 100mg tab GT SCH (21:00)
--- NOTE | 2016-03-11 21:17 | Consultation ---
DATE OF CONSULTATION: 03/11/2016 HEMATOLOGY/ONCOLOGY CONSULTATION CONSULTING PHYSICIAN: Speedy Lozano M.D. REFERRING PHYSICIAN: Maynor Pope M.D. REASON FOR CONSULTATION: Evaluation of leukocytosis and anemia. IDENTIFICATION: Dear Dr. Maynor Pope: The patient is a pleasant 85-year-old female, who is nonverbal, unresponsive to pain, she is bedbound, she has had feeding tube, currently she was admitted with acute respiratory distress. She was tachypneic, saturating low, currently is on 15 L nonrebreather, otherwise without any other systemic symptoms. . No nausea. No vomiting. found to be hypoxic, unresponsive, unable to obtain any further history from the patient. This is the first time she has visited [facility]. Hematology service was consulted for evaluation of blood dyscrasias. PAST MEDICAL HISTORY: As noted above unknown past history. PAST SURGICAL HISTORY: None noted. FAMILY HISTORY: Noncontributory. REVIEW OF SYSTEMS: The patient with shortness of breath for treatment, otherwise, unable to obtain. ALLERGIES: No known drug allergies at this time. MEDICATIONS: Medications at home, Tylenol, aspirin, benazepril, vitamin B12, , multivitamin tablet, . Medications at this time, 1. Heparin units subcutaneously. 2. Amikacin 500 mg. 3. Morphine. 4. Clindamycin. 5. Zosyn. 6. . PHYSICAL EXAMINATION: VITAL SIGNS: Temperature 97.4 degrees Fahrenheit, pulse of 95, respiratory rate 20, blood pressure 99/57, and pulse oximetry . GENERAL: In no distress. PULMONARY: Decreased breath sounds bilaterally. No crackles noted. CARDIOVASCULAR: Regular rate. No S3 or S4. ABDOMEN: Soft, nontender, and nondistended. EXTREMITIES: A 1+ edema. LABORATORY DATA: WBC , hemoglobin 11.8, hematocrit 36, MCV 109, and platelet count 429,000. BUN of 116, creatinine of 2.3, blood sugar elevated at and is 115. ASSESSMENT: 1. Anemia of chronic disease. 2. Decreased hemoglobin and hematocrit, rule out gastrointestinal bleed. 3. Leukocytosis, potentially secondary to septic shock . 4. Altered mental status. 5. Encephalopathy. 6. Diabetic ketoacidosis with blood sugar of above 800. 7. Respiratory distress. 8. pneumonia. 9. Septic shock. RECOMMENDATIONS: 1. Monitor counts. 2. Obtain anemia workup. 3. Ultrasound of the abdomen ordered for macrocytosis. 4. We will follow up on Pulmonary and Infectious Disease advice. 5. Peripheral smear reviewed. 6. Monitor coagulopathy. 7. Antibiotics as needed. 8. DVT prophylaxis with heparin subcutaneously. 9. GI prophylaxis as needed. 10. Discussed with staff. Thank you, Dr. Toshia Mcguire, for this consult. Please do not hesitate to contact me if you have any further questions. Speedy Lozano M.D. DR: LIZZY JOB#: [id number] CC:
[2016-03-11 21:42] LABS: TROPONIN I < 0.30 ng/mL (<=0.30)
--- NOTE | 2016-03-11 22:37 | Consultation ---
DATE OF CONSULTATION: INFECTIOUS DISEASE CONSULTATION CONSULTING PHYSICIAN: Andrade Morales M.D. REQUESTING PHYSICIAN: Maynor Pope M.D. REASON FOR CONSULTATION: Septic shock and pneumonia. Recommendation for antibiotics therapy. HISTORY OF PRESENT ILLNESS: The patient is an 85-year-old female with history of dementia, who was sent to [facility] from her rehabilitation facility for respiratory distress. The patient is bed bound. She received tube feeding and normally not verbal, but awake. The patient was found to be in respiratory distress last night. She had no fever. The patient was found to be hypoxic and unresponsive. She was placed on oxygen and sent to the emergency room for further evaluation. In ED, she was found to be febrile with temperature of 101.3 degrees. She was hypotensive. Chest x-ray showed left lung infiltration suspicious for pneumonia. The patient received vancomycin, Zosyn, and amikacin by the body mechanic apprentice and she was admitted to the intensive care unit for further management and I was consulted by the primary provider for antibiotics recommendation. As of note, the patient is a poor historian and cannot provide any history. History was mainly obtained from the medical records. PAST MEDICAL HISTORY: Significant for dementia, dysphagia, and psych disorder. PAST SURGICAL HISTORY: She had tube feeding placement. MEDICATIONS: The patient received amikacin, Zosyn, and vancomycin. For the rest of her medications, please refer to the MAR. ALLERGIES: She has no known drug allergy. SOCIAL HISTORY: No recent drugs, tobacco, or alcohol. FAMILY HISTORY: Unable to obtain. REVIEW OF SYSTEMS: Unable to obtain. The patient is nonverbal. PHYSICAL EXAMINATION: VITAL SIGNS: Temperature 97.4 degrees, pulse 90, blood pressure 85/40, and pulse oximetry is 100% on face mask with FiO2 of 100. GENERAL: An elderly female, lying in bed, altered, on face mask, unresponsive, and does not follow commands. HEENT: Normocephalic and atraumatic. Pupils are reactive to light. Pale sclera. Unable to assess oral mucosa due to the breathing mask. NECK: Supple. No lymphadenopathy. CARDIOVASCULAR: Tachycardic. S1 and S2 positive. No murmur. LUNGS: She had diminished breathing sounds at the bases, mainly on the left side. Normal breathing effort. No wheezing. ABDOMEN: Soft, nontender, and nondistended. Positive bowel sounds. No hepatosplenomegaly. No ascites. EXTREMITIES: Trace edema. No cyanosis. SKIN: She had sacral decubitus wound stage II. LABORATORY DATA: White count 15.7, hemoglobin 9.8, platelet count of 429,000, and sedimentation rate of 56. BUN of 116 and creatinine of 2.3. Glucose of 869. Lactic acid of 11.8. Total CK of 792. LDH of 455. IMAGING: Chest x-ray showed nonspecific left lung parenchymal opacity, could reflect acute infiltrates, edema, and neoplastic or post inflammatory changes. ASSESSMENT AND PLAN: 1. Healthcare-acquired pneumonia. We will start. Continue Zosyn. We will discontinue amikacin and vancomycin to avoid nephrotoxicity and send influenza screening. Monitor culture. 2. Severe sepsis with acute organ dysfunction. We will start the patient empirically on Zyvox and Zosyn. Send blood culture. We will stop amikacin and vancomycin due to renal failure. Continue intravenous fluid, blood pressure support, and use pressor as needed. 3. Diabetic ketoacidosis. Continue insulin drip and monitor glucose level closely. Recommend tight glycemic control to keep blood glucose between 80 to 120. Management as per the body mechanic apprentice. 4. Respiratory failure with hypoxemia due to pneumonia, on high flow oxygen. We will continue wide-spectrum antibiotics therapy. Screen for influenza. Monitor ABG. Pulmonary is following. 5. Dehydration. Continue intravenous fluid for hydration. 6. Acute renal failure due to sepsis and hypotension. We will avoid nephrotoxic medicine. Continue intravenous fluid for hydration and consult leach cell operator. Andrade Morales M.D. DR: STEPHEN JOB#: [id number] CC:
[2016-03-11] MEDS ORDERED: Tubing IV Secondary IV ONE (23:29)
[2016-03-11] MEDS ORDERED: 1/2 NS 1000ml IV ONE (23:29)
[2016-03-11] MEDS ORDERED: NS 275ml ONE (23:29)
--- NOTE | 2016-03-11 23:37 | History and Physical Report ---
DATE OF ADMISSION: 03/11/2016 HISTORY OF PRESENT ILLNESS: The patient is admitted to ICU for severe sepsis, pneumonia, and DKA. The patient basically had severe abnormalities that included elevated blood sugar. The patient is acidotic. The patient also is bedbound. She has a feeding tube. The patient at baseline is nonverbal. no respiratory distress. No other symptoms. The patient is apparently nonresponsive and hypoxic. The patient is being admitted for sepsis, pneumonia, DKA, acute renal failure, severe dehydration, and hyperkalemia. The patient is currently in ICU. PAST MEDICAL HISTORY: Organic brain syndrome, dysphagia, hypertension, diabetes, as well as vitamin B12 deficiency, advanced dementia, NIDDM, mood disorder, psychosis, and GERD. PAST SURGICAL HISTORY: G-tube. MEDICATIONS: Aspirin, benazepril, vitamin B12, donepezil, Levemir, mirtazapine, multivitamin, olanzapine, omeprazole, trazodone, and verapamil. ALLERGIES: No known allergies. SOCIAL HISTORY: Unable to obtain. REVIEW OF SYSTEMS: Unable to obtain. PHYSICAL EXAMINATION: VITAL SIGNS: Temperature is not recorded. Pulse is 80 and blood pressure is 81/48. HEENT: PERRLA. NECK: Supple. CHEST: Clear to auscultation. CARDIOVASCULAR: Tachycardic. GASTROINTESTINAL: Abdomen is soft. Positive bowel sounds. ABDOMEN: Soft. EXTREMITIES: Edema decreased on both sides. NEUROLOGIC: Nonoriented and nonverbal. Does not follow the neurological exam. LABORATORY DATA: WBC of 15.7, hemoglobin of 9.8, and platelets of 429,000. Sodium 158, potassium 4.8, BUN of 116, and creatinine of 2.3. Glucose of 869. A pH was 7.1. ASSESSMENT: 1. Diabetic ketoacidosis. 2. Elevated blood sugar. 3. Hyperosmolar coma. 4. Dysphagia. 5. Sepsis. 6. Pneumonia. 7. Acute renal failure. 8. Hypernatremia. 9. Dehydration. 10. Initially, the patient has hyperkalemia, but now the potassium is 4.8. 11. Respiratory insufficiency. PLAN: I have asked Dr. Cowan, Dr. Hernadez, Dr. Fernandez, Dr. Morales, and Dr. Gee to see the patient for the above-mentioned diagnoses and also for the treatment of DKA and sepsis and pneumonia as well as for the treatment of hypertension. Maynor Pope M.D. DR: LAMONT JOB#: [id number] CC:
--- NOTE | 2016-03-11 23:47 | Consultation ---
DATE OF CONSULTATION: 03/11/2016 CARDIOLOGY CONSULTATION REFERRING PHYSICIAN: Maynor Pope M.D. REASON FOR CONSULTATION: Septic shock. HISTORY OF PRESENT ILLNESS: The patient is an 85-year-old lady who is nonverbal and bedbound and [facility] patient with G-tube, was sent in for respiratory distress. The patient was noted to have fevers. Per EMS, the patient was unresponsive and hypoxic. No further information is available. However, the patient's blood sugar was extremely high and the patient was admitted to intensive care unit for possible diabetic ketoacidosis. At the time of my evaluation, the patient is intubated in intensive care unit and is not able to provide any information. PAST MEDICAL HISTORY: 1. History of hypertension. 2. History of dementia. 3. Status post G-tube placement. 4. Diabetes. . SOCIAL HISTORY: She lives in [facility]. The patient does not smoke or drink alcohol. FAMILY HISTORY: Noncontributory. REVIEW OF SYSTEMS: Cannot be obtained. Also diabetic ketoacidosis and sepsis, temperature was also 101.3 degrees. PHYSICAL EXAMINATION: VITAL SIGNS: Blood pressure is 86/45, pulse is 90, respirations 18, and temperature was 100 degrees. NECK: No JVD. She has a face mask. LUNGS: Coarse rhonchi. CARDIOVASCULAR: Regular S1 and S2 with no gallop or murmur. ABDOMEN: Soft. EXTREMITIES: Contracted. She has a sacral bedsores. LABORATORY AND DIAGNOSTIC DATA: Her laboratories show white count of 15.7, hemoglobin 9.8, hematocrit 36, and platelet count of 429,000. ESR 56. Sodium is 158, potassium 4.8, BUN of and creatinine of 2.3. Her initial glucose was 1072. CK 792. Her EKG showed sinus tachycardia at 126 with a right bundle-branch block and left anterior fascicular block. ASSESSMENT AND PLAN: 1. Septic shock, also and the patient was in diabetic ketoacidosis. The patient is getting IV fluids. The patient's grandson just made the patient Do Not Resuscitate. The patient is getting intravenous fluids as well. 2. Severe dehydration with a sodium 158 as well as BUN of 137 and creatinine of 2.4. The patient is profoundly dehydrated and getting her half normal saline and management per neurologist. 3. Healthcare associated pneumonia, on Zyvox. 4. Severe sepsis, multiorgan dysfunction. 5. Respiratory failure with hypoxia. Thank very much, Dr. Pope, for allowing me to participate in the care of this patient. Please do not hesitate to contact me for any questions regarding my evaluation. The case was discussed in detail with the patient's ICU nurse. The patient remains in critical condition. Jaleel Gee M.D. DR: TABITHA JOB#: [id number] CC:
--- NOTE | 2016-03-11 23:52 | General Progress Note ---
Assessment/Plan Status: other Status Narrative Patient had no spontaneous BP or pulse and was pronounced at 23.29.Her nephew Silvio Aldridge was notified. Assessment/Plan Patient had no spontaneous BP or pulse and was pronounced at 23.29.I notified he rnephew Silvio Aldridge. Subjective Date patient seen: Mar 11, 2016 Time patient seen: 23:29 ROS Limited/Unobtainable: Yes Allergies: Coded Allergies: No Known Allergies (Unverified , 03/11/16) Objective Last 24 Hour Vital Signs Date Time Temp Pulse Resp B/P Pulse Ox O2 Delivery O2 Flow Rate FiO2 03/11/16 23:19 68/19 03/11/16 21:45 101 19 98/53 100 Bi-pap 100 03/11/16 21:30 101 19 94/55 100 Bi-pap 100 03/11/16 21:20 101 21 Full Face 100 03/11/16 21:15 101 19 98/56 100 Bi-pap 100 03/11/16 20:45 101 19 106/52 100 Bi-pap 100 03/11/16 20:31 98/58 03/11/16 20:30 101 19 108/54 100 Bi-pap 100 03/11/16 20:15 101 19 108/54 100 Bi-pap 100 03/11/16 20:00 95.0 100 19 108/57 100 Bi-pap 100 03/11/16 19:45 99 19 87/50 100 Bi-pap 100 03/11/16 19:30 85 19 104/53 100 Bi-pap 100 03/11/16 19:15 96 19 99/55 100 Bi-pap 100 03/11/16 19:05 95 21 97 Full Face 100 03/11/16 19:00 95 19 92/41 100 Bi-pap 100 03/11/16 18:30 106/52 03/11/16 18:11 89/45 03/11/16 18:00 85 19 87/50 100 Bi-pap 100 03/11/16 17:45 84 19 89/45 100 Bi-pap 100 03/11/16 17:30 84 19 88/45 100 Bi-pap 100 03/11/16 17:15 92 19 90/47 100 Bi-pap 100 03/11/16 17:00 94 19 90/47 100 Bi-pap 100 03/11/16 16:48 86/45 1/25/17 16:45 88 20 100 Full Face 100 03/11/16 16:45 93 19 87/42 100 Bi-pap 100 03/11/16 16:32 83/45 03/11/16 16:30 92 19 86/45 100 Bi-pap 100 03/11/16 16:15 92 19 83/45 100 Bi-pap 100 03/11/16 16:00 80 03/11/16 16:00 92 19 83/45 100 Bi-pap 100 03/11/16 15:54 82/44 03/11/16 15:45 93 20 91/46 100 Bi-pap 100 03/11/16 15:30 93 20 91/46 100 Bi-pap 100 03/11/16 15:27 85/40 03/11/16 15:15 93 20 82/44 100 Bi-pap 100 03/11/16 15:08 90 20 100 Full Face 100 03/11/16 15:00 90 19 87/49 100 Bi-pap 100 03/11/16 14:39 82/44 03/11/16 14:30 86/45 03/11/16 14:15 86/45 03/11/16 14:09 82/44 03/11/16 14:00 76 14 85/40 Bi-pap 100 03/11/16 13:22 81/48 03/11/16 13:15 72 20 99 Full Face 100 03/11/16 13:00 72 14 82/44 03/11/16 12:00 81 10 86/51 Bi-pap 100 03/11/16 11:00 84 25 91/56 Bi-pap 100 03/11/16 10:55 92 20 99 Full Face 100 03/11/16 10:10 80 03/11/16 10:00 89 21 93/45 03/11/16 10:00 100 03/11/16 09:00 88 20 90/47 Bi-pap 100 03/11/16 08:40 89 20 98 Full Face 100 03/11/16 08:30 95 31 99/57 98 Mechanical Ventilator 100 03/11/16 08:20 97.4 95 31 106/74 100 15.0 100 03/11/16 07:42 96 31 100 Full Face 100 03/11/16 07:30 95 32 106/74 100 Mechanical Ventilator 100 03/11/16 06:30 99 27 128/64 100 Mechanical Ventilator 100 03/11/16 05:40 109 27 122/67 100 Mechanical Ventilator 100 03/11/16 05:25 108 33 100 Full Face 100 03/11/16 04:36 97.4 112 15 92/45 97 Mechanical Ventilator 100 03/11/16 03:32 99.4 108 15 90/54 97 Mechanical Ventilator 100 03/11/16 02:51 116 28 Full Face 100 03/11/16 02:30 99.7 115 14 99/59 97 Mechanical Ventilator 100 03/11/16 01:48 135 35 Non-Rebreather 15.0 03/11/16 01:35 100 03/11/16 01:31 101.3 135 35 137/115 87 Non-Rebreather 15.0 Intake and Output 03/10/16 03/11/16 19:00 07:00 Intake Total 2335 ml Balance 2335 ml Intake IV Total 2335 ml Laboratory Tests 03/11/16 01:55: White Blood Count 15.7H, Red Blood Count 3.29L, Hemoglobin 9.8L, Hematocrit 35.9L, Mean Corpuscular Volume 109H, Mean Corpuscular Hemoglobin 29.9, Mean Corpuscular Hemoglobin Concent 27.3L, Red Cell Distribution Width 14.7, Platelet Count 429, Mean Platelet Volume 6.9, Neutrophils (%) (Auto) 84.9H, Lymphocytes (%) (Auto) 12.0L, Monocytes (%) (Auto) 2.8, Eosinophils (%) (Auto) 0.0, Basophils (%) (Auto) 0.3, Differential Total Cells Counted 100, Neutrophils % (Manual) 85H, Lymphocytes % (Manual) 11L, Monocytes % (Manual) 1, Eosinophils % (Manual) 0, Basophils % (Manual) 0, Band Neutrophils 3, Platelet Estimate IncreasedH, Platelet Morphology Normal, Macrocytosis 1+, Prothrombin Time 10.3, Prothromb Time International Ratio 1.0, Activated Partial Thromboplast Time > 150*H, Sodium Level 154H, Potassium Level 6.1*H, Chloride Level 111H, Carbon Dioxide Level 17L, Anion Gap 26H, Blood Urea Nitrogen 137H, Creatinine 2.4H, Estimat Glomerular Filtration Rate , Glucose Level 1072*H, Lactic Acid Level 9.90H, Calcium Level 9.9, Total Bilirubin 0.7, Aspartate Amino Transf (AST/SGOT) 22, Alanine Aminotransferase (ALT/SGPT) 22, Alkaline Phosphatase 100, Total Creatine Kinase 792H, Creatine Kinase MB 4.8H, Creatine Kinase MB Relative Index 0.6, Troponin I < 0.30, Total Protein 6.6, Albumin 3.1L , Globulin 3.5, Albumin/Globulin Ratio 0.8L 03/11/16 03:25: Lactic Acid Level 11.80H 03/11/16 04:25: Arterial Blood pH 7.130*L, Arterial Blood Partial Pressure CO2 36.2, Arterial Blood Partial Pressure O2 202.0H, Arterial Blood HCO3 11.8L, Arterial Blood Oxygen Saturation 98.4H, Arterial Blood Base Excess -16.3, Leon Test Positive 03/11/16 05:25: Sodium Level 158H, Potassium Level 4.8, Chloride Level 119H, Carbon Dioxide Level 14L, Anion Gap 25H, Blood Urea Nitrogen 116H, Creatinine 2.3H, Estimat Glomerular Filtration Rate , Glucose Level 869#*H, Calcium Level 8.3L 03/11/16 10:05: Glucose Level 716#*H 03/11/16 12:15: Erythrocyte Sedimentation Rate 56H, Reticulocyte Count 1.7, Prothrombin Time 12.1H, Prothromb Time International Ratio 1.2H, Activated Partial Thromboplast Time 28, Iron Level 13L, Total Iron Binding Capacity 139L, Percent Iron Saturation 9L, Unsaturated Iron Binding 126, Ferritin 1344H, Lactate Dehydrogenase 455H, C-Reactive Protein, Quantitative 6.9H, Carcinoembryonic Antigen 42.7H, Vitamin B12 Level 742, Folate [Pending] 03/11/16 13:30: Lactic Acid Level 5.40H 03/11/16 20:30: Lactic Acid Level 3.80H, Troponin I < 0.30 Height (Feet): 5 Height (Inches): 0.00 Weight (Pounds): 130 General Appearance: cachetic, other EENT: other Neck: other Cardiovascular: other Respiratory/Chest: other Abdomen: other Genitourinary/Rectal: other Extremities: other DONALD REAL M.D. Mar 11, 2016 23:52
[2016-03-12] MEDS ORDERED: Vancomycin 750mg/D5W 275ml IVPB SCH ×2 (02:00)
--- NOTE | 2016-03-12 12:07 | Consultation ---
DATE OF CONSULTATION: 03/11/2016 NOTE: VERY POOR AUDIO QUALITY: ENDOCRINOLOGY CONSULTATION CONSULTING PHYSICIAN: Judson Long M.D. REFERRING PHYSICIAN: Maynor Pope M.D. HISTORY OF PRESENT ILLNESS: The patient is an 85-year-old Spanish female who presented septic shock. The patient is actually well known to me from previously with diabetes. She was on q.12 h. with fairly good control. She has significant septic shock with glucose of sodium 134 and potassium 6.1. pressors. most recent glucose 124 . PHYSICAL EXAMINATION: GENERAL: The patient is in no respiratory distress. VITAL SIGNS: Blood pressure pulse 59, respiratory rate 20, and temperature 97. LUNGS: Bilateral expiratory rhonchi. . ABDOMEN: Soft. Reduced bowel sounds. EXTREMITIES: Contractures noticeable. NEUROLOGIC: Awake and alert. . LABORATORY DATA: Glucose of 124 mg%. ASSESSMENT: 1. Diabetic ketoacidosis. 2. Septic shock. 3. Pneumonia. 4. dehydration. . PLAN: Judson Long M.D. DR: VLADIMIR JOB#: [id number] CC:
--- NOTE | 2016-03-12 17:54 | Discharge Summary ---
Discharge Summary Hospital Course Date of Admission Mar 11, 2016 at 03:06 Date of Discharge Mar 11, 2016 at 23:30 Admitting Diagnosis severe sepsis pneumonia HPI Amrida Aldridge is a 85 year old female who was admitted on Mar 11, 2016 at 03:06 for Severe Sepsis,Pneumonia Hospital Course [id number] Discharge Discharge Disposition Patient Discharge Diagnoses: Demetrice Rivera NP Mar 12, 2016 17:54
--- NOTE | 2016-03-13 02:47 | Discharge Summary 2 SIG ---
DATE OF ADMISSION: 03/11/2016 DATE OF DISCHARGE: 03/11/2016 CONSULTANTS: 1. Fox Cowan M.D. 2. Harsh Hernadez M.D. 3. Andrade Morales M.D. 4. Jaleel Gee M.D. 5. Speedy Lozano M.D. 6. Judson Long M.D. BRIEF SUMMARY: The patient is an unfortunate 85-year-old female, who is bed-bound was sent in from SNF due to acute onset of respiratory distress. On arrival to ED, the patient was nonresponsive and hypoxic and with elevated blood sugar. Temperature was 101.3. A triple central line to the right femoral was placed and the patient was given IV hydration. Chest x-ray showed multilobar infiltrates mostly left lower lobe. Laboratories showed severe hyperglycemia possible diabetic ketoacidosis. Lactic acid of 11. The patient was admitted to ICU was started on IV antibiotics and was pancultured. she had poor prognosis. She was given insulin drip. She continued to be hypotensive without any improvement despite IV fluid resuscitation. She was started on IV pressors and has been maxed out on two IV pressors. She continued to be lethargic and on BiPAP. The family was notified regarding the patient's condition and the patient was made DNR/ DNI. She continued to deteriorate and the patient eventually . FINAL DIAGNOSES: 1. Cardiorespiratory arrest. 2. Acute respiratory failure requiring BiPAP. 3. Septic shock. 4. Diabetic ketoacidosis. 5. Severe dehydration. 6. Healthcare-associated pneumonia. 7. Multiorgan dysfunction. 8. Acute renal failure secondary to septic shock. 9. Advanced dementia. 10. Hyperosmolar coma. 11. Palliative/comfort care. 12. Sacral stage II pressure ulcer, present on admission. Maynor Pope M.D. I have been assigned to dictate discharge summary on this account and I was not involved in the patient's management. Demetrice Rivera N.P. DR: SHERRY JOB#: [id number] CC: NAVJOT
--- NOTE | 2016-03-13 10:15 | Diagnostic Imaging Report ---
Indication: Abdominal pain Technique: Zarate-scale and duplex images of the upper abdomen were obtained Comparison: None Findings: . Gallbladder demonstrates numerous gallstones. No gallbladder wall thickening or pericholecystic fluid. Sonographic Bueno's sign could not be assessed as patient is reportedly nonresponsive. Common bile duct measures 4 mm in diameter. No intrahepatic biliary ductal dilatation. Liver demonstrates slightly coarsened echogenicity. No definite surface nodularity.. Portal vein and hepatic veins are patent.. Pancreas is unremarkable. Spleen is unremarkable. Left kidney measures 9.2 cm in length. Right kidney measures 9.3 cm length. Both kidneys demonstrate normal echogenicity. There is no hydronephrosis. There are bilateral renal cysts incidentally noted. . Non-aneurysmal abdominal aorta. Impression: Cholelithiasis. Negative for dilated ducts Incidental finding of bilateral renal cysts
--- NOTE | 2016-03-19 12:59 | Cardiology Report ---
APPROVED REPORT EKG Measurement Heart [id number] Sinus tachycardia Incomplete right bundle branch block Right ventricular hypertrophy Anterolateral infarct, age undetermined Abnormal ECG
== END 2016-03-11 23:30 | disposition expired | DRG 871 ==
LOC: EDBD 01:33 → EMR 01:58 → 2W 03:06 → EDBEDREQ 03:26 → ICU 08:12
PROC: 0BH17EZ Insertion of Endotracheal Airway into Trachea, Via Natural or Artificial Opening (ICD-10-PCS; principal; 2016-03-11)
PROC: 06HM33Z Insertion of Infusion Device into Right Femoral Vein, Percutaneous Approach (ICD-10-PCS; principal; 2016-03-11)
PROC: 5A1935Z Respiratory Ventilation, Less than 24 Consecutive Hours (ICD-10-PCS; principal; 2016-03-11)
PROC: 5A09357 Assistance with Respiratory Ventilation, Less than 24 Consecutive Hours, Continuous Positive Airway Pressure (ICD-10-PCS; principal; 2016-03-11)
DX: A41.9 Sepsis, unspecified organism (principal); J96.01 Acute respiratory failure with hypoxia; R65.21 Severe sepsis with septic shock; E13.11 Other specified diabetes mellitus with ketoacidosis with coma; G93.40 Encephalopathy, unspecified; N17.9 Acute kidney failure, unspecified; J18.9 Pneumonia, unspecified organism; E87.0 Hyperosmolality and hypernatremia; Z43.1 Encounter for attention to gastrostomy; L89.152 Pressure ulcer of sacral region, stage 2; E86.0 Dehydration; F03.90 Unspecified dementia, unspecified severity, without behavioral disturbance, psychotic disturbance, mood disturbance, and anxiety; Z66 Do not resuscitate; Z51.5 Encounter for palliative care; D64.9 Anemia, unspecified; D63.8 Anemia in other chronic diseases classified elsewhere; R13.10 Dysphagia, unspecified; F09 Unspecified mental disorder due to known physiological condition; F29 Unspecified psychosis not due to a substance or known physiological condition
CPT/HCPCS: 36415; 36600; 71010; 76700; 80048; 80053; 82378; 82550; 82553; 82607; 82728; 82746; 82803; 82947; 82962; 83540; 83550; 83605; 83615; 84484; 85007; 85025; 85044; 85060; 85610; 85651; 85730; 86140; 87040; 93005; 94660